=== PATIENT | female | born 1955 | race Asian ===

== ENCOUNTER 2020-08-25 09:00 | Emergency (ER) | payer OTHER ==
[2020-08-25 09:12] VITALS: BP 175/70
[2020-08-25 09:38] LABS: BILIRUBIN,URINE NEGATIVE (NEGATIVE); GLUCOSE, URINE (UA) NEGATIVE (NEGATIVE); KETONES,URINE (UA) TRACE mg/dL (NEGATIVE); LEUKOCYTE ESTERASE, URINE TRACE (NEGATIVE); NITRITE,URINE NEGATIVE (NEGATIVE); OCCULT BLOOD,URINE SMALL (NEGATIVE); PH,URINE 5.5 PH (5.0-7.5); PROTEIN,URINE 30 mg/dL (NEGATIVE); UROBILINOGEN,URINE 1 (NORMAL) E.U./dL (NORMAL)
[2020-08-25 09:40] LABS: CLARITY,URINE CLEAR (CLEAR)
[2020-08-25 10:01] LABS: BACTERIA,URINE Few /HPF (None Seen); CRYSTALS,URINE 11-25 Ca Oxalate /LPF; SQUAMOUS EPITHELIAL CELL,UR MOD Squamous (<= Few)
--- NOTE | 2020-08-25 17:00 | ED Physician Documentation ---
History of Present Illness - Stated complaint Stated Complaint: FEMALE - Chief complaint Chief Complaint: UTI - Additonal information Additional information: 65-year-old woman with past medical history of UTI presents with asymptomatic bacteriuria after she presented to her primary doctor for high blood pressure and underwent full medical work-up. She was told to come here for UTI treatment however she does not have any urinary symptoms. Denies fever chills back pain abdominal pain dysuria hematuria increased frequency. Review of Systems Ten Systems: 10 systems reviewed and negative Constitutional: denies: Fever, Chills : denies: Dysuria, Frequency Musculoskeletal: denies: Back pain PD PAST MEDICAL HISTORY - Past Medical History Cardiovascular: Hypertension - Allergies Allergies/Adverse Reactions: Allergies Allergy/AdvReac Type Severity Reaction Status Date / Time No Known Drug Allergies Allergy Verified 08/25/20 09:12 - Social History Does the pt smoke?: No Smoking Status: Never smoker PD ED PE NORMAL - Vitals Vital signs reviewed: Yes - General General: Alert and oriented X 3 - HEENT HEENT: Atraumatic, PERRL, EOMI - Neck Neck: Supple, no meningeal sign - Cardiac Cardiac: RRR - Respiratory Respiratory: No respiratory distress - Abdomen Abdomen: Normal bowel sounds, Non tender, Non distended - Female Female : Deferred - Rectal Rectal: Deferred - Back Back: No CVA TTP - Derm Derm: Normal color - Extremities Extremities: No deformity - Neuro Neuro: Alert and oriented X 3 - Psych Psych: Normal mood, Normal affect Results - Vitals Vitals: Vital Signs - 24 hr 08/25/20 09:07 Temperature 36.9 C Heart Rate 80 Respiratory 20 Rate Blood Pressure 175/70 H O2 Saturation 100 Oxygen O2 Source Room air - Labs Labs: Laboratory Tests 08/25/20 09:19 Urine Color DARK YELLOW Urine Clarity CLEAR Urine pH 5.5 Ur Specific [place] >=1.030 H Urine Protein 30 H Urine Glucose (UA) NEGATIVE Urine Ketones TRACE Urine Occult Blood SMALL H Urine Nitrite NEGATIVE Urine Bilirubin NEGATIVE Urine Urobilinogen 1 (NORMAL) Ur Leukocyte Esterase TRACE H Urine RBC 6-10 H Urine WBC 0-3 Ur Squamous Epith Cells MOD Squamous H Urine Crystals 11-25 Ca Oxalate Urine Bacteria Few Ur Microscopic Review INDICATED PD MEDICAL DECISION MAKING - ED course Complexity details: d/w patient ED course: 65-year-old woman presents with asymptomatic bacteriuriano need for antibiotic treatment at this time. Return precautions given. Follow-up with primary doctor. Departure - Departure Disposition: 01 Home, Self Care Clinical Impression: Encounter for medical screening examination, Hypertension, White blood cells present on urine microscopy Condition: Good Instructions: Hypertension Control, ED Screening Exam Medical Nonurgent Comments: You have been seen in the emergency department for a medical screening exam. Because you do not have any urinary symptoms like fever, blood in your pee, peeing more than usual, or burning when you pee, it is not necessary to treat you for a UTI at this time. You do have high blood pressure with a recorded pressure of 175/70. It is important to follow-up with your primary doctor for further blood pressure management. Discharge Date/Time: 08/25/20 10:04
== END 2020-08-25 10:04 | disposition home or self-care (01) ==
LOC: ED 09:00
DX: R82.71 Bacteriuria (principal); I10 Essential (primary) hypertension
CPT/HCPCS: 81001; 81003; 99283

== ENCOUNTER 2020-09-24 15:11 | Outpatient (CLI) | payer OTHER ==
--- NOTE | 2020-09-25 11:45 | Mammography Report ---
BILATERAL DIGITAL SCREENING MAMMOGRAM 3D/2D: 09/24/2020 CLINICAL: Routine screening. No prior exams were available for comparison. There are scattered fibroglandular elements in both br easts. No significant masses, calcifications, or other findings are seen in either breast. IMPRESSION: NEGATIVE There is no mammographic evidence of malignancy. A 1 year screening mammogram is recommended. This exam was interpreted at Station ID: [id number]. NOTE: For mammograms, a report in lay terms will be sent to the patient. Approximately 15% of breast malignancies will not be visualized mammographically. In the management of a palpable breast mass, a negative mammogram must not discourage biopsy of a clinically suspicious lesion. Electronically Signed By: Mary Ellen goldman/josé:09/24/2020 18:12:54 ACR BI-RADS Category 1: Negative 3341F PARENCHYMAL PATTERN: (A) - The breast(s) demonstrate(s) scattered fibroglandular densities. BI-RADS CATEGORY: (1) - 1 RECOMMENDATION: (ANNUAL) - Recommend routine annual screening mammography. [id number] 1 year screening LATERALITY: (B)
== END 2020-09-24 15:12 | disposition home or self-care (01) ==
LOC: DI.N 15:11
DX: Z12.31 Encounter for screening mammogram for malignant neoplasm of breast (principal)
CPT/HCPCS: 77067

== ENCOUNTER 2021-07-13 12:36 | Outpatient (CLI) | payer OTHER ==
[2021-07-13] MEDS ORDERED: GADOBUTROL 7.5 MMOL/7.5 ML VIAL ONE (12:52)
[2021-07-13] MEDS ORDERED: GADOBUTROL 7.5 MMOL/7.5 ML VIAL IVP ONE (13:30)
--- NOTE | 2021-07-13 14:35 | MRI Report ---
PROCEDURE: Brain W/WO INDICATIONS: AMNESIA, SYNCOPE CONTRAST: IV CONTRAST: Gadavist ml: 5.6 TECHNIQUE: Noncontrast axial T1 spin echo, axial T2 fast spin echo, sagittal and axial FLAIR, coronal T2 fast sp in echo, axial gradient echo, axial diffusion and ADC through the brain. After the administration of contrast, axial and coronal T1 spin echo with fat saturation through the brain. COMPARISON: None. FINDINGS: Image quality: Excellent. CSF spaces: Basal cisterns are patent. No extra-axial fluid collections. Ventricles are normal in size and shape. Brain: There is a prominently enhancing extra-axial mass seen along the right aspect of the falx sup eriorly, as on series 1002 image 94 and on series 1003 image 58 that measures up to 11 mm. This focus of increased low signal on T2-weighted imaging. No midline shift. No intracranial bleeds. There is cerebral volume loss for age. There is perivent ricular white matter chronic small vessel ischemic change. The brainstem appears normal. Diffusion- weighted images demonstrate no acute ischemic insults. There is a focus of cystic volume loss seen in volving the right basal ganglia, as on series 501 image 14, which measures up to 14 mm. Normal intrav ascular flow voids are present. Skull and face: Calvarial marrow is normal in signal. Orbits appear normal. Sinuses: Sinuses and mastoids appear clear. IMPRESSION: 11 mm meningioma seen along the right aspect of the falx. There is a focus of cystic volume loss seen involving the right basal ganglia, which may be related t o a remote infarction. No findings of acute or subacute infarction are seen. Reviewed by: Mendez Vega MD on 07/13/2021 1:33 PM [facility] Approved by: Mendez Vega MD on 07/13/2021 1:33 PM GLY[facility] Station ID: [id number]
[2021-07-14] MEDS ORDERED: GADOBUTROL 7.5 MMOL/7.5 ML VIAL IVP ONE (07:54)
== END 2021-07-13 12:37 | disposition home or self-care (01) ==
LOC: DI 12:36
PROVIDERS: ATTEND Physician Assistant
DX: R41.3 Other amnesia (principal); R55 Syncope and collapse; D32.0 Benign neoplasm of cerebral meninges; G23.8 Other specified degenerative diseases of basal ganglia
CPT/HCPCS: 70553; A9585

== ENCOUNTER 2023-09-11 13:01 | Outpatient (CLI) | payer MEDICARE, OTHER | END 2023-09-11 23:59 | disposition short-term general hospital (02) | LOC: EMS 13:01 | DX: R53.1 Weakness (principal); R55 Syncope and collapse | CPT/HCPCS: A0425; A0427 ==